=== PATIENT | female | born 1950 | race Caucasian/White ===

== ENCOUNTER → 2024-01-28 11:49 | Outpatient (REF) | payer MEDICARE, SELFPAY | LOC: DHCBC/DCA 11:49 | PROVIDERS: ATTENDING PHYSICIAN Internal Medicine Cardiovascular Disease; FAMILY PHYSICIAN Family Medicine | DX: I42.2 Other hypertrophic cardiomyopathy (principal); R06.09 Other forms of dyspnea; R07.89 Other chest pain | CPT/HCPCS: 78452; 93017; A9500 ==

== ENCOUNTER → 2025-06-14 13:55 | Outpatient (REF) | payer MEDICARE, SELFPAY | LOC: RCS 13:55 | PROVIDERS: ATTENDING PHYSICIAN Internal Medicine Cardiovascular Disease; FAMILY PHYSICIAN Family Medicine | DX: I42.2 Other hypertrophic cardiomyopathy (principal) | CPT/HCPCS: 93306 ==